=== PATIENT | male | born 1935 | race Caucasian/White ===

== ENCOUNTER 2020-01-29 10:28 | Inpatient (IN) | payer OTHER, MEDICAID ==
[~2020-01-29] VITALS: Ht 182.9 cm; Wt 68.9 kg
[2020-01-29 11:53] LABS: Basophils # (auto) 0.1 10 ^3/uL (0-0.2); Basophils % (auto) 0.6 % (0.0-2.0); Eosinophils # (auto) 0 10 ^3/uL (0-0.8); Eosinophils % (auto) 0.4 % (0.0-7.0); Hematocrit 39.7 % (41.0-53.0); Hemoglobin 13.5 g/dL (13.5-17.5); Lymphocytes # (auto) 0.9 10 ^3/uL (0.4-5.4); Lymphocytes % (auto) 9.2 % (10.0-50.0); Mean Corpuscular Hemoglobin 29.8 pg (28.0-32.0); Mean Corpuscular Hgb Conc. 33.9 g/dL (32.0-36.0); Mean Corpuscular Volume 88.1 fL (80.0-100.0); Monocytes # (auto) 1.1 10 ^3/uL (0-1.3); Monocytes % (auto) 11.8 % (0.0-12.0); Neutrophils # (auto) 7.4 10 ^3/uL (1.6-8.6); Nucleated Red Blood Cells % 0.1 %; Platelet Count (auto) 303 10^3/uL (140-450); Red Blood Cells 4.51 10^6/uL (4.5-5.90); White Blood Cell 9.5 10^3/uL (4.4-10.8)
[2020-01-29 12:01] LABS: Potassium 4.3 mmol/L (3.5-5.1)
[2020-01-29 12:07] LABS: Magnesium 3.1 mg/dL (1.6-2.6)
[2020-01-29 12:12] LABS: Albumin 3.2 g/dL (3.4-5.0); BUN/Creatinine Ratio 26.9; Bilirubin, Total 0.5 mg/dL (0.2-1.0); Calcium 9.3 mg/dL (8.5-10.1); Total Protein 7.6 g/dL (6.4-8.2)
[2020-01-29] MEDS ORDERED: MORPHINE SULF INJ 2 MG/ML SYRINGE 1ML IV ONE (12:45)
[2020-01-29] MEDS ORDERED: ACETAMINOPHEN 500 MG TAB PO PRN (13:00)
[2020-01-29] MEDS ORDERED: SODIUM CHLORIDE 0.9% 1,000 ML IV ONE (13:00)
[2020-01-29] MEDS ORDERED: NITROGLYCERIN 0.4 MG SL TAB SL PRN (13:00)
[2020-01-29] MEDS ORDERED: MORPHINE SULF INJ 2 MG/ML SYRINGE 1ML IV PRN (13:00)
[2020-01-29] MEDS ORDERED: HYDROcodone-ACET 5/325MG TAB PO PRN (13:00)
[2020-01-29] MEDS ORDERED: hydrALAZINE HCL 20 MG/ML VL IV PRN (13:00)
[2020-01-29] MEDS: ENOXAPARIN SOD 60 MG/0.6 ML SYRINGE SC SCH ×2 (13:30→22:58)
[2020-01-29] MEDS ORDERED: ALPR0.5T7 PO (13:44)
[2020-01-29] MEDS: MORPHINE SULF INJ 2 MG/ML SYRINGE 1ML IV PRN (19:45)
[2020-01-29] MEDS: ONDANSETRON HCL 4 MG/2 ML VIAL IV PRN (19:45)
[2020-01-29] MEDS: METOPROLOL TARTRATE 25 MG TAB PO SCH (22:59)
[2020-01-29] MEDS: ATORVASTATIN 20 MG TAB PO SCH (23:00)
[2020-01-29] MEDS: PANTOPRAZOLE 40 MG/10 ML VIAL INJ IV SCH (23:00)
[2020-01-30 03:35] LABS: Urine Bacteria NONE SEEN /hpf (None Seen); Urine Blood Negative /uL (Negative); Urine Hyaline Cast MANY /lpf (0 - 2); Urine Mucus FEW (None Seen); Urine Specific Gravity 1.025 (1.001-1.035); Urine WBC 6 /hpf (0 - 3)
[2020-01-30 08:03] LABS: Basophils # (auto) 0.1 10 ^3/uL (0-0.2); Eosinophils # (auto) 0.1 10 ^3/uL (0-0.8); Eosinophils % (auto) 0.8 % (0.0-7.0); Hematocrit 36.9 % (41.0-53.0); Hemoglobin 11.9 g/dL (13.5-17.5); Lymphocytes % (auto) 12.2 % (10.0-50.0); Mean Corpuscular Hemoglobin 28.8 pg (28.0-32.0); Mean Corpuscular Hgb Conc. 32.2 g/dL (32.0-36.0); Mean Corpuscular Volume 89.2 fL (80.0-100.0); Monocytes # (auto) 1.3 10 ^3/uL (0-1.3); Monocytes % (auto) 15.8 % (0.0-12.0); Neutrophils # (auto) 5.6 10 ^3/uL (1.6-8.6); Neutrophils % (auto) 70.2 % (37.0-80.0); Nucleated Red Blood Cells % 0.1 %; Platelet Count (auto) 265 10^3/uL (140-450); Red Blood Cells 4.13 10^6/uL (4.5-5.90); Red Cell Distribution Width 14.3 % (11.8-14.3)
[2020-01-30 08:25] LABS: Anion Gap 4 (5-15); Blood Urea Nitrogen 38 mg/dL (7-18); Calcium 8.4 mg/dL (8.5-10.1); Carbon Dioxide 27 mmol/L (21-32); Chloride 106 mmol/L (98-107); GFR African American 97 mL/min; GFR Non-African American 80 mL/min; Glucose 90 mg/dL (74-106); Potassium 4.4 mmol/L (3.5-5.1); Sodium 137 mmol/L (136-145)
[2020-01-30 08:59] LABS: INR 1.08 (0.9-1.15); Partial Thromboplastin Time 39.4 sec (23.0-31.2)
[2020-01-30] MEDS: METOPROLOL TARTRATE 25 MG TAB PO SCH (14:52)
[2020-01-30] MEDS: PANTOPRAZOLE 40 MG/10 ML VIAL INJ IV SCH ×2 (14:52→22:00)
[2020-01-30] MEDS: ASPirin-EC 81 mg tab PO SCH (14:52)
[2020-01-30] MEDS: LISINOPRIL 10 MG TAB PO SCH (14:53)
[2020-01-30] MEDS: ENOXAPARIN SOD 60 MG/0.6 ML SYRINGE SC SCH ×2 (14:54→22:00)
[2020-01-30] MEDS: SUCRALFATE 1 GM/10 ML ORAL SUSP PO SCH (17:00)
[2020-01-30 22:06] VITALS: BP 115/71
[2020-01-31] MEDS: ATORVASTATIN 20 MG TAB PO SCH ×2 (00:11→21:11)
[2020-01-31] MEDS: SUCRALFATE 1 GM/10 ML ORAL SUSP PO SCH ×5 (00:11→21:21)
[2020-01-31] MEDS: METOPROLOL TARTRATE 25 MG TAB PO SCH ×3 (00:12→21:12)
[2020-01-31 04:00] VITALS: BP 129/77
[2020-01-31] MEDS ORDERED: IOHEXOL 350 MG/ML 100ML IJ ONE ×2 (08:20→10:28)
[2020-01-31] MEDS ORDERED: LIDOCAINE 2%HCL (LOCAL ANESTH.) INJ 20ML MDV ONE (08:20)
[2020-01-31 09:00] VITALS: BP 133/68
[2020-01-31] MEDS ORDERED: fentaNYL CITRATE 100 MCG/2 ML VL ONE (09:24)
[2020-01-31] MEDS ORDERED: ANGIOMAX 250 MG VIAL IV ONE (09:24)
[2020-01-31] MEDS ORDERED: SODIUM CHL 0.9% 50 ML ONE (09:24)
[2020-01-31] MEDS ORDERED: MIDAZOLAM HCL 1MG/1ML-2 ML VIAL ONE (09:24)
[2020-01-31] MEDS: ASPirin-EC 81 mg tab PO SCH (10:00)
[2020-01-31] MEDS ORDERED: ASPirin 325 MG TAB ONE (10:49)
[2020-01-31] MEDS ORDERED: CLOPIDOGREL 300 MG TAB ONE (10:49)
[2020-01-31] MEDS ORDERED: ASPirin 81 mg TAB ONE (10:49)
[2020-01-31] MEDS: LISINOPRIL 10 MG TAB PO SCH (12:58)
[2020-01-31] MEDS: PANTOPRAZOLE 40 MG/10 ML VIAL INJ IV SCH ×2 (12:59→21:12)
[2020-01-31 13:00] VITALS: BP 148/80
[2020-01-31] MEDS: ONDANSETRON HCL 4 MG/2 ML VIAL IV PRN (13:31)
[2020-01-31] MEDS: MORPHINE SULF INJ 2 MG/ML SYRINGE 1ML IV PRN (13:31)
[2020-01-31] MEDS ORDERED: ATOR20TA50 PO (14:36)
[2020-01-31] MEDS ORDERED: LISI-648 PO (14:36)
[2020-01-31] MEDS ORDERED: SUCR1SUS10 PO (14:36)
[2020-01-31] MEDS ORDERED: ASPI-543 PO (14:36)
[2020-01-31] MEDS ORDERED: OMEP-434 PO (14:36)
[2020-01-31] MEDS ORDERED: CLOP75TA28 PO (14:36)
[2020-01-31] MEDS ORDERED: MET25T PO (14:36)
[2020-01-31 17:00] VITALS: BP 143/89
[2020-02-01 05:00] VITALS: BP 133/80
[2020-02-01] MEDS: SUCRALFATE 1 GM/10 ML ORAL SUSP PO SCH ×2 (07:02→11:30)
[2020-02-01 09:00] VITALS: BP 160/92
[2020-02-01] MEDS: ASPirin-EC 81 mg tab PO SCH (10:00)
[2020-02-01] MEDS: METOPROLOL TARTRATE 25 MG TAB PO SCH (10:00)
[2020-02-01] MEDS ORDERED: CLOPIDOGREL BISULFATE 75 MG TAB PO SCH (10:00)
[2020-02-01] MEDS: PANTOPRAZOLE 40 MG/10 ML VIAL INJ IV SCH (10:33)
[2020-02-01] MEDS: LISINOPRIL 10 MG TAB PO SCH (10:35)
[2020-02-01 13:00] VITALS: BP 137/80
[2020-02-01 14:24] VITALS: BP 137/80
== END 2020-02-01 15:20 | disposition home health service (06) | DRG 246 ==
LOC: ER 10:28 → TELE 10:29 → TELE-CENTR 01-30 22:06
PROVIDERS: ADMIT Nurse Practitioner Acute Care; ATTEND Hospitalist
PROC: 027034Z Dilation of Coronary Artery, One Artery with Drug-eluting Intraluminal Device, Percutaneous Approach (ICD-10-PCS; principal; 2020-01-31)
PROC: B2111ZZ Fluoroscopy of Multiple Coronary Arteries using Low Osmolar Contrast (ICD-10-PCS; 2020-01-31)
PROC: 4A033BC Measurement of Arterial Pressure, Coronary, Percutaneous Approach (ICD-10-PCS; 2020-01-31)
DX: I21.4 Non-ST elevation (NSTEMI) myocardial infarction (principal); I50.43 Acute on chronic combined systolic (congestive) and diastolic (congestive) heart failure; I13.0 Hypertensive heart and chronic kidney disease with heart failure and stage 1 through stage 4 chronic kidney disease, or unspecified chronic kidney disease; I31.3 Pericardial effusion (noninflammatory); D68.59 Other primary thrombophilia; I48.91 Unspecified atrial fibrillation; E86.0 Dehydration; I25.10 Atherosclerotic heart disease of native coronary artery without angina pectoris; F41.9 Anxiety disorder, unspecified; M54.5 Low back pain; I35.2 Nonrheumatic aortic (valve) stenosis with insufficiency; R55 Syncope and collapse; Z20.828 Contact with and (suspected) exposure to other viral communicable diseases; N18.31 Chronic kidney disease, stage 3a
CPT/HCPCS: 36415; 70450; 71045; 72125; 74176; 80048; 80053; 81001; 83735; 84484; 85025; 85610; 85730; 86141; 87426; 92928; 93005; 93306; 93454; 93571; 93886; 96361; 96374; 96375; 96376; 99152; 99153; C1874; C9113; G0378; J2250; J2405